=== PATIENT | female | born 1985 | race Caucasian/White ===

== ENCOUNTER → 2016-11-11 | Outpatient (CLI) | payer BC | END | disposition home or self-care (01) | LOC: MMGSC 14:52 | PROVIDERS: ATTEND Family Medicine | DX: N39.0 Urinary tract infection, site not specified (principal) | CPT/HCPCS: 87077; 87086; 87186 ==

== ENCOUNTER → 2018-07-20 | Outpatient (CLI) | payer BC ==
--- NOTE | 2018-07-21 12:22 | MR ---
MR left thigh HISTORY: Localized swelling, mass and lump Multiplanar multisequence and postcontrast images obtained through the proximal left thigh following 7.5 cc Gadavist IV. No comparisons There is an overlying marker at the site of patient's palpable abnormality. Normal signal is noted within the underlying fat and musculature. Bone marrow signal is maintained. N o discrete mass. There is artifact noted on the exam. There is no evident adenopathy. No free fluid w ithin the pelvis. Ovaries show an unremarkable appearance. Uterus and adnexal structures within alfa l limits. Urinary bladder is normal. IMPRESSION: No discrete mass is identified. Correlate for possible lipoma.
== END | disposition home or self-care (01) ==
LOC: RADMRIMAIN 16:36
PROVIDERS: ATTEND Family Medicine
DX: R22.42 Localized swelling, mass and lump, left lower limb (principal)
CPT/HCPCS: 73720; A9585